=== PATIENT | male | born 2000 | race Caucasian/White ===

== ENCOUNTER 2021-06-01 15:29 | Emergency (ER) | payer MEDICAID, SELFPAY ==
[2021-06-01 15:30] VITALS: BP 151/89; PULSE 78; RESP 16; TEMP 36.9; O2SAT 99; BMI 31.4
--- NOTE | 2021-06-01 16:01 | NURSING ---
NO OLD EKGS
--- NOTE | 2021-06-01 17:06 | EKG12_ITS ---
Test Reason : CP Blood Pressure : / mmHG Vent. Rate : 070 BPM Atrial Rate : 070 BPM P-R Int : 136 ms QRS Dur : 088 ms QT Int : 394 ms P-R-T Axes : 015 056 019 degrees QTc Int : 425 ms Normal sinus rhythm Normal ECG Confirmed by SANTANA VIRK, BRANDEE ([id number]), multimedia editor ANIA ROCHE ([id number]) on 06/03/2021 9:12:42 AM Referred By: KEERTHI/CASEY Confirmed By:BRANDEE DILLON MD
[2021-06-01 17:28] LABS: Absolute Lymphocyte Count 2.67 X10^3/uL (0.83-4.51); Absolute Neutrophil Count 5.1 X10^3/uL (2.0-7.7); Basophil# 0.05 X10^3/uL; Basophil% 0.6 % (0-1); Eosinophil# 0.13 X10^3/uL; Eosinophils% 1.5 % (0-5); Hematocrit 45.5 % (40-54); Hemoglobin 14.5 g/dL (13.0-16.5); Lymphocyte # 2.67 X10^3/ul (0.83-4.51); Lymphocyte % 31.5 % (19-41); Mean Corp Hgb Conc 31.9 g/dL (32-36); Mean Corpuscular Hgb 26.6 pg (27.0-32.0); Mean Corpuscular Volume 83.5 fL (80-94); Mean Platelet Vol. 9.6 fl (6.2-12.0); Monocyte# 0.55 X10^3/uL; Monocyte% 6.5 % (0-10); NRBC Flagged by Analyzer 0 % (0-5); Neutrophil # 5.05 X10^3/uL (2.7-7.7); Neutrophil % 59.5 % (47-70); Platelet Count 269 K/mm3 (150-450); RBC Distribution Width CV 13.2 % (11.6-14.6); RBC Distribution Width SD 40.4 fl (35.1-43.9); Red Blood Count 5.45 M/mm3 (4.6-6.2); White Blood Count 8.5 K/mm3 (4.4-11.0)
--- NOTE | 2021-06-01 17:32 | NURSING ---
NO OLD EKGS
--- NOTE | 2021-06-01 17:45 | RAD_ITS ---
STUDY: X-RAY CHEST REASON FOR EXAM: Male, 20 years old. Chest pain TECHNIQUE: Single frontal view of the chest. COMPARISON: None. FINDINGS: The lungs are clear and expanded. There is no demonstrated pleural abnormality. Normal size heart. Normal mediastinum and matthew. Normal visualized pulmonary arteries. Normal visualized aortic arch and descending thoracic aorta. Normal visualized thoracic spine. Normal visualized ribs, clavicles, and shoulders. There is no demonstrated abnormality of the visualized soft tissue structures of the upper abdomen. RAD/Chest 1 View (Portable) IMPRESSION: Normal x-ray examination of the chest. Electronically Signed: Saul Erazo MD at 18:33 EDT Tel , Service support ,
[2021-06-01 17:47] LABS: ALB/GLOB Ratio 1.1 RATIO (0.9-2.4); AST(SGOT) 21 U/L (15-37); Alanine Aminotransfer ALT/SGPT 37 U/L (16-61); Alkaline Phosphatase 95 U/L (45-117); Anion Gap 4 (5-15); BUN 14 mg/dL (7-18); BUN/Creat Ratio 14.1 RATIO (10-20); Calcium,Total 8.8 mg/dL (8.5-10.1); Chloride 106 mmol/L (98-107); EST Glomerular Filtration Rate 101 mL/min (>60); Est Glom Filt Rate - Afr Amer 122 mL/min (>60); Globulin 3.8 g/dL (2.2-4.2); Glucose 91 mg/dL (74-106); Lipase 76 U/L (73-393); Potassium 3.7 mmol/L (3.5-5.1); Protein, Total 7.8 g/dL (6.4-8.2); Sodium Level 140 mmol/L (136-145); Troponin-I HS 4 pg/mL (3.0-78.0)
--- NOTE | 2021-06-01 17:49 | ED.VIS.CHEST ---
HPI History of Present Illness Chief Complaint: Chest Pain Informant: patient Narrative Narrative: Patient is a 20-year-old male that denies any significant past medical history presenting with chest pain and shortness of breath. He states he had symptoms for the past 3 weeks. Patient states discomfort and stress has been constant he describes as a heaviness. He denies any true shortness of breath. He states of intermittent episodes where the discomfort is more severe and last for 1 to 2 hours. Is in the center of his chest. Does not radiate. He notes he felt a little lightheaded today. He came in to be evaluated as it been going on for 3 weeks. He notes he was lifting weights and that seem to actually help his symptoms. He denies any swelling in his legs. [place] any history of DVT or PE. He does not take any medication on a daily basis. He has not tried any shdd-pio-cqwplke medications for his discomfort. No cough or sick contacts. No other complaints at this time. PFSH PFS Home Medications famotidine [Pepcid] 20 mg PO DAILY #20 tab 06/01/21 [Rx Last Taken Unknown] Allergy/AdvReac Type Severity Reaction Status Date / Time No Known Allergies Allergy Verified 06/01/21 15:32 Social History Smoking Status: Unknown if ever smoked [facility] [place] ED Constitutional Constitutional ED: Reports other Details: Lightheaded ; Denies fatigue, fever(s) or weakness Eyes Eyes: Denies blurry vision ENT ENT ED: Denies ear pain or rhinorrhea Cardiovascular Cardiovascular: Reports chest pain; Denies palpitations Respiratory/Chest Respiratory/Chest: Reports dyspnea; Denies cough or dyspnea on exertion Gastrointestinal Gastrointestinal: Denies abdominal pain, nausea or vomiting Genitourinary Genitourinary ED: Denies decreased urination or dysuria Musculoskeletal Musculoskeletal: Denies extremity pain Integumentary Denies new lesions or rash Neurologic Neurologic: Denies paresthesias or weakness Psychiatric Psychiatric: Denies anxiety or depression Hematologic/Lymphatic Hematologic/Lymphatic: Denies easy bleeding or easy bruising EXAM Physical Exam Const Vital Signs: 06/01/21 15:30 06/01/21 16:42 06/01/21 17:15 Temperature 98.4 F Temperature Source Temporal Pulse Rate 78 Respiratory Rate 16 Respiratory Effort Normal Non-Labored Blood Pressure 151/89 H Blood Pressure Mean 109 Pulse Ox 99 Oxygen Delivery Method Room Air Room Air 06/01/21 18:04 Temperature Temperature Source Pulse Rate 76 Respiratory Rate Respiratory Effort Blood Pressure Blood Pressure Mean Pulse Ox 99 Oxygen Delivery Method Positive well nourished and well developed General Appearance ED: well developed and NAD HEENT Reports moist mucous membranes normocephalic Mouth ED: Yes moist mucous membranes normal Eyes PERRL and EOMs intact bilaterally General Eye ED: Yes normal appearance of both eyes Pupil: PERRL Neck supple and no JVD Lymph Lymphatic: no lymphadenopathy noted Chest Wall inspection of chest normal and palpation of chest normal Chest Narrative: Mild tenderness palpation of the lower sternum on exam however this does not completely reproduce his symptoms. Resp normal respiratory effort and normal air movement Cardio regular rate and regular rhythm Peripheral Pulses: pulses 2+ throughout GI normal to inspection, nondistended, normoactive bowel sounds, non-tender and non-distended GI Narrative: Negative Rojas sign Back/Spine no CVA tenderness and normal to inspection Extremity normal to inspection and full ROM Neuro oriented x3, moves all extremities and no focal motor deficits Sensorium / Orientation: awake and alert Motor Exam: Negative for general weakness Psych mental status grossly normal and thought process normal Skin no rashes or lesions noted and no petechiae Heart Score History: Slightly/Non-Suspicious ECG: Normal Age: </= 45 years Risk Factors: 1 or 2 Risk Factors Troponin: </= Normal Limit Score: 1 MDM MDM MDM Narrative Medical decision making narrative: Patient evaluated for chest pain. He appears nontoxic in no acute distress. EKG does not show any acute ischemic changes. Patient is low risk for PE and he is PE RC negative. I do not think a D-dimer is indicated. He is also low risk for ACS and his troponin is normal. Given the symptoms been ongoing for 3 weeks I do not think a delta troponin is needed. No obvious abnormalities on his lab work. Patient is counseled differential includes chest wall pain, pleurisy or GERD. He is urged to follow-up with a primary care doctor. He is referred to 1. At this time think he stable for outpatient follow-up. He is instructed to take Tylenol and an antacid as needed for discomfort to see if this improves his symptoms. Lab Data Attestation: I reviewed the patient's lab results. Labs: Laboratory Results - last 24 hr 06/01/21 06/01/21 17:20 17:20 WBC 8.5 RBC 5.45 Hgb 14.5 Hct 45.5 MCV 83.5 MCH 26.6 L MCHC 31.9 L RDW Std Deviation 40.4 RDW Coeff of Yimi 13.2 Plt Count 269 MPV 9.6 Immature Gran % (Auto) 0.400 Neut % (Auto) 59.5 Lymph % (Auto) 31.5 [place] % (Auto) 6.5 Eos % (Auto) 1.5 Baso % (Auto) 0.6 Absolute Neuts (auto) 5.1 Absolute Lymphs (auto) 2.67 Nucleated RBC % 0 Sodium 140 Potassium 3.7 Chloride 106 Carbon Dioxide 30.0 Anion Gap 4 L BUN 14 Creatinine 1.00 Estim Creat Clear Calc 125.50 Est GFR (MDRD) Af Amer 122 Est GFR (MDRD) Non-Af 101 BUN/Creatinine Ratio 14.1 Glucose 91 Calcium 8.8 Total Bilirubin 0.30 AST 21 ALT 37 Alkaline Phosphatase 95 Troponin I High Sens 4 Total Protein 7.8 Albumin 4.0 Globulin 3.8 Albumin/Globulin Ratio 1.1 Lipase 76 Radiography Chest X-Ray - ED: 1 View, Read by ED Physician and No Acute Disease Diagnostic Testing: Radiology Impression Chest X-Ray 06/01/21 17:45 IMPRESSION: Normal x-ray examination of the chest. Electronically Signed: Saul Erazo MD at 18:33 EDT Tel , Service support , Rhythm Strip Rhythm Strip: Sinus Rhythm Rate: 70 Ectopy: None EKG Initial EKG: Attestation: I personally reviewed and interpreted this EKG as follows: Interpretation: Sinus Rhythm Comments: Normal sinus rhythm at a rate of 70 Normal axis Normal intervals Normal ST segments Discharge Plan Triage Chief Complaint: Chest Pain ED Provider: Rosi Funk Dx/Rx/DC Orders Clinical Impression: Chest pain of uncertain etiology Instructions: ED Chest Pain, Uncertain Cause Prescriptions: New famotidine [Pepcid] 20 mg tablet 20 mg PO DAILY Qty: 20 RF: 0 Primary Care Provider: Care Physician,No Primary Referrals: Jurgen Crooks MD [STAFF PHYSICIAN] - Care Physician,No Primary [Primary Care Provider] - Activity Restrictions/Additional Instructions: Your heart work-up is normal. Not sure is causing her pain, could be muscles or could be your stomach. Try taking Tylenol and take the Pepcid as prescribed. Disposition Disposition: Home, Self Care Discharge Date/Time: 06/01/21 18:05
[2021-06-01 18:04] VITALS: PULSE 76; O2SAT 99
== END 2021-06-01 18:05 | disposition home or self-care (01) ==
PROVIDERS: Emergency Provider Emergency Medicine
DX: R07.9 Chest pain, unspecified (principal)
CPT/HCPCS: 71045; 80053; 83690; 84484; 85025; 87426; 93005; 99284; A4216